=== PATIENT | male | born 1950 | race Caucasian/White ===

== ENCOUNTER 2022-05-17 07:41 | Outpatient (CLI) | payer MEDICARE, MEDICAID ==
[2022-05-17 08:35] LABS: BASOPHILS # (AUTO) 0.1 10^3/uL (0.0-0.1); BASOPHILS % (AUTO) 0.8 %; EOSINOPHILS # (AUTO) 0.5 10^3/uL (0.0-0.7); HCT - HEMATOCRIT 45.7 % (42.0-52.0); HGB - HEMOGLOBIN 14.8 g/dL (14.0-18.0); LYMPHOCYTES # (AUTO) 1.8 10^3/uL (1.5-3.5); LYMPHOCYTES % (AUTO) 23.5 %; MEAN CORPUSCULAR HGB CONC 32.4 g/dL (32.0-36.0); MEAN CORPUSCULAR VOLUME 98.7 fL (80.0-94.0); MEAN PLATELET VOLUME 9.5 fL (7.4-11.4); MONOCYTES # (AUTO) 0.7 10^3/uL (0.0-1.0); MONOCYTES % (AUTO) 8.6 %; NEUTROPHILS # (AUTO) 4.6 10^3/uL (1.5-6.6); NEUTROPHILS % (AUTO) 60.8 %; PLT - PLATELET COUNT 251 10^3/uL (130-450); RED BLOOD COUNT 4.63 10^6/uL (4.70-6.10); RED CELL DISTRIBUTION WIDTH 13.4 % (12.0-15.0); WHITE BLOOD COUNT 7.6 x10^3/uL (4.8-10.8)
[2022-05-17 08:56] LABS: ALBUMIN 4.1 g/dL (3.2-5.5); ALBUMIN/GLOBULIN RATIO 1.3 (1.0-2.2); ALKALINE PHOSPHATASE 46 IU/L (42-121); ALT ALANINE AMINOTRANSFERASE 18 IU/L (10-60); AST ASPARTATE AMINOTRANSFERASE 20 IU/L (10-42); BILIRUBIN,TOTAL 1.1 mg/dL (0.2-1.0); BUN - BLOOD UREA NITROGEN 19 mg/dL (6-20); CALCIUM 9.2 mg/dL (8.5-10.3); CARBON DIOXIDE - CO2 31 mmol/L (21-32); CHLORIDE 99 mmol/L (101-111); CHOL/HDL RATIO 3.1 (<5.0); CHOLESTEROL 254 mg/dL; CREATININE 0.8 mg/dL (0.6-1.2); GFR - MDRD 96 (>89); GLUCOSE 100 mg/dL (70-100); HDL CHOLESTEROL 83 mg/dL; LDL CHOLESTEROL,CALCULATED 161 mg/dL; LDL/HDL RATIO 1.9 (<3.6); POTASSIUM 4.2 mmol/L (3.5-5.0); SODIUM 136 mmol/L (135-145); TOTAL PROTEIN 7.3 g/dL (6.7-8.2); TRIGLYCERIDES 51 mg/dL; VLDL CHOLESTEROL 10 mg/dL
[2022-05-17 09:04] LABS: THYROID STIMULATING HORMONE 1.83 uIU/mL (0.34-5.60)
--- NOTE | 2022-05-17 12:10 | Ultrasound Report ---
PROCEDURE: Aorta Screening INDICATIONS: SMOKER TECHNIQUE: Real time scanning was performed of the aorta and iliac arteries, with image documentatio n. COMPARISON: None FINDINGS: Aorta: Proximal aortic diameter measures 2.5 x 2.4 cm. Mid-aorta measures 1.9 x 1.9 cm. Distal aor tic diameter is 1.5 x 1.5 cm. Minimal distal aortic atherosclerotic plaque. Iliac arteries: Right common iliac artery measures 1.0 x 1.0 cm. Left common iliac artery measures 1.0 x 1.0 cm. Proximal iliac atherosclerotic plaque noted. IMPRESSION: Atherosclerosis. No evidence for abdominal aortic or iliac artery aneurysm. Reviewed by: Tariq Smith MD on 05/17/2022 12:08 PM PST Approved by: Tariq Smith MD on 05/17/2022 12:08 PM PST Station ID: [id number]
--- NOTE | 2022-05-17 12:49 | CT Report ---
PROCEDURE: Low Dose Lung Cancer Screen INDICATIONS: SMOKER TECHNIQUE: Noncontrast low-dose axial images were acquired from the pulmonary apices to the posterior costophren ic angles. Multiplanar MIP reformats were then reconstructed. For radiation dose reduction, the follo wing was used: automated exposure control, adjustment of mA and/or kV according to patient size. COMPARISON: None. FINDINGS: Image quality: Excellent. Lungs and pleura: No mass or significant pulmonary nodules. No acute airspace opacity. Trace secreti ons in the left mainstem bronchus and trachea. No pleural effusion. No pneumothorax. Mediastinum: Heart size is normal. Moderate coronary artery calcifications most pronounced in the LA D. No pericardial effusion. No mediastinal adenopathy by size criteria. Thoracic aorta and central pulmonary arteries are normal in size. Mildly calcified plaque in the aorta. Small fat-containing Pola chdalek hernias. Esophagus is normal in caliber. No hiatal hernia. Bones and chest wall: No suspicious bony lesions. No vertebral body compression fractures. No axil alexandre or supraclavicular adenopathy by size criteria. The thyroid is normal in size and there are no incidental findings. Abdomen: Visualized upper abdomen solid organs and bowel loops appear normal in the absence of contr ast. IMPRESSION: 1. No mass or significant pulmonary nodules. Lung RADS 1s. Recommend follow-up lung cancer screening chest CT in 12 months. 2. Moderate coronary artery calcifications. Reviewed by: Tony Zapata MD on 05/17/2022 12:48 PM PST Approved by: Tony Zapata MD on 05/17/2022 12:48 PM PST Station ID: [id number]
== END 2022-05-17 07:42 | disposition home or self-care (01) ==
LOC: DI 07:41 → LAB 07:42
PROVIDERS: ATTEND Registered Nurse
DX: J44.9 Chronic obstructive pulmonary disease, unspecified (principal); R94.6 Abnormal results of thyroid function studies; F17.210 Nicotine dependence, cigarettes, uncomplicated; Z13.228 Encounter for screening for other metabolic disorders; Z13.220 Encounter for screening for lipoid disorders; Z12.5 Encounter for screening for malignant neoplasm of prostate; Z13.0 Encounter for screening for diseases of the blood and blood-forming organs and certain disorders involving the immune mechanism; Z12.2 Encounter for screening for malignant neoplasm of respiratory organs; Z13.6 Encounter for screening for cardiovascular disorders; I70.0 Atherosclerosis of aorta; I25.10 Atherosclerotic heart disease of native coronary artery without angina pectoris
CPT/HCPCS: 36415; 71271; 76706; 80053; 80061; 84443; 85025; G0103; 83721; 84153

== ENCOUNTER 2023-05-20 14:15 | Outpatient (CLI) | payer MEDICARE, MEDICAID ==
--- NOTE | 2023-05-20 16:11 | CT Report ---
PROCEDURE: Chest WO INDICATIONS: COPD TECHNIQUE: A CT scan of the chest was performed. Intravenous contrast media was not administered. Images were re corded and evaluated at appropriate window settings. Reformats: axial MIP of the chest, coronal and s agittal. For radiation dose reduction, the following was used: automated exposure control, adjustment of mA and/or kV according to patient size. COMPARISON: CT low dose lung cancer screen at 05/17/2022. FINDINGS: Image quality: Diagnostic. Lungs and pleura: No consolidation. No pleural effusions. No pneumothorax. No suspicious pulmonary n odules which require follow up. Mediastinum: Heart size is normal. No pericardial effusion. Moderate coronary artery calcifications. No large vessel abnormality. No mediastinal adenopathy by size criteria. Redemonstration of small fa t-containing Bochdalek hernia. Chest wall and lower neck: Thyroid is unremarkable. No axillary or supraclavicular adenopathy by size . Bones: No acute or suspicious osseous abnormality. Mild degenerative changes of the spine. Trace retr olisthesis of L1 on L2. Upper Abdomen: Unremarkable. IMPRESSION: No emphysematous changes. No suspicious pulmonary nodule. Moderate coronary artery calcifications. Recommend continued annual low-dose CT chest lung cancer screening in 12 months if patient meets elig ibility criteria. Reviewed by: Tamanna Pickens MD on 05/20/2023 4:10 PM [facility] Approved by: Tamanna Pickens MD on 05/20/2023 4:10 PM PST Station ID: [id number]
== END 2023-05-20 14:16 | disposition home or self-care (01) ==
LOC: DI 14:15
PROVIDERS: ATTEND Registered Nurse
DX: J44.9 Chronic obstructive pulmonary disease, unspecified (principal); F17.210 Nicotine dependence, cigarettes, uncomplicated; I25.10 Atherosclerotic heart disease of native coronary artery without angina pectoris

== ENCOUNTER 2023-05-27 11:26 | Outpatient (CLI) | payer MEDICARE, MEDICAID ==
[2023-05-27 14:10] LABS: BASOPHILS # (AUTO) 0.1 10^3/uL (0.0-0.1); BASOPHILS % (AUTO) 0.8 %; EOSINOPHILS # (AUTO) 0.3 10^3/uL (0.0-0.7); EOSINOPHILS % (AUTO) 3.2 %; HCT - HEMATOCRIT 44.9 % (42.0-52.0); HGB - HEMOGLOBIN 14.6 g/dL (14.0-18.0); LYMPHOCYTES # (AUTO) 2.2 10^3/uL (1.5-3.5); LYMPHOCYTES % (AUTO) 23.6 %; MEAN CORPUSCULAR HEMOGLOBIN 31.8 pg (27.0-31.0); MEAN CORPUSCULAR HGB CONC 32.5 g/dL (32.0-36.0); MEAN CORPUSCULAR VOLUME 97.8 fL (80.0-94.0); MEAN PLATELET VOLUME 10.2 fL (7.4-11.4); MONOCYTES # (AUTO) 0.7 10^3/uL (0.0-1.0); MONOCYTES % (AUTO) 7.9 %; NEUTROPHILS % (AUTO) 64.1 %; PLT - PLATELET COUNT 333 10^3/uL (130-450); RED BLOOD COUNT 4.59 10^6/uL (4.70-6.10); RED CELL DISTRIBUTION WIDTH 12.9 % (12.0-15.0); WHITE BLOOD COUNT 9.3 x10^3/uL (4.8-10.8)
[2023-05-27 14:32] LABS: ALBUMIN 4.3 g/dL (3.2-5.5); ALBUMIN/GLOBULIN RATIO 1.4 (1.0-2.2); ALKALINE PHOSPHATASE 53 IU/L (42-121); ALT ALANINE AMINOTRANSFERASE 15 IU/L (10-60); AST ASPARTATE AMINOTRANSFERASE 21 IU/L (10-42); BILIRUBIN,TOTAL 0.6 mg/dL (0.2-1.0); BUN - BLOOD UREA NITROGEN 15 mg/dL (6-20); CALCIUM 9.6 mg/dL (8.5-10.3); CARBON DIOXIDE - CO2 32 mmol/L (21-32); CHLORIDE 99 mmol/L (101-111); CHOL/HDL RATIO 3.1 (<5.0); CHOLESTEROL 243 mg/dL; CREATININE 0.7 mg/dL (0.6-1.3); GFR - MDRD 111 (>89); GLUCOSE 94 mg/dL (74-104); HDL CHOLESTEROL 78 mg/dL; LDL CHOLESTEROL,CALCULATED 152 mg/dL; LDL/HDL RATIO 1.9 (<3.6); POTASSIUM 3.9 mmol/L (3.5-4.5); SODIUM 137 mmol/L (135-145); TOTAL PROTEIN 7.4 g/dL (6.4-8.9); TRIGLYCERIDES 67 mg/dL (48-352); VLDL CHOLESTEROL 13 mg/dL
[2023-05-27 14:42] LABS: THYROID STIMULATING HORMONE 1.37 uIU/mL (0.34-5.60)
== END 2023-05-27 11:27 | disposition home or self-care (01) ==
LOC: LAB.S 11:26
PROVIDERS: ATTEND Registered Nurse
DX: Z13.228 Encounter for screening for other metabolic disorders (principal); Z12.5 Encounter for screening for malignant neoplasm of prostate; Z13.220 Encounter for screening for lipoid disorders; Z13.29 Encounter for screening for other suspected endocrine disorder; Z13.0 Encounter for screening for diseases of the blood and blood-forming organs and certain disorders involving the immune mechanism; F17.200 Nicotine dependence, unspecified, uncomplicated
CPT/HCPCS: 36415; 80053; 80061; 84443; 85025; G0103; 83721; 84153

== ENCOUNTER 2023-10-19 18:52 | Emergency (ER) | payer MEDICAID, MEDICARE, OTHER ==
[2023-10-19] MEDS: PROPARACAINE 0.5% OPHTH DROPS 15 ML RIGHTEYE STA (20:34)
--- NOTE | 2023-10-19 20:59 | ED Physician Documentation ---
PD HPI OPHTHO - Stated complaint Stated Complaint: R EYE PX - Chief complaint Chief Complaint: Heent - History obtained from History obtained from: Patient - Additional information Additional information: Patient is a 73-year-old male presenting for evaluation of irritation to his right eye string around noon time. Patient states he was taking some stuff to the dumping [place] and felt that something may have gotten into his eye. He is unsure of what it could have been but he reports he has had a foreign body sensation and tearing in his eye since then. He does not normally wear glasses or contacts but does need readers. A friend at the bedside did try to irrigate his eye but he states this did not help with his symptoms. Review of Systems Constitutional: denies: Fever Eyes: reports: Irritation. denies: Loss of vision PD PAST MEDICAL HISTORY - Past Medical History Past Medical History: No - Past Surgical History Past Surgical History: No - Present Medications Home Medications: Ambulatory Orders Medication Instructions Recorded Confirmed Polymyxin B/Trimeth Ophth Drop 1 drops RIGHTEYE Q3H 3 Days #1 each 10/19/23 [Polytrim Ophth Drops] - Allergies Allergies/Adverse Reactions: Allergies Allergy/AdvReac Type Severity Reaction Status Date / Time No Known Drug Allergies Allergy Verified 10/19/23 19:15 - Social History Does the pt smoke?: Yes Smoking Status: Current every day smoker Does the pt drink ETOH?: Yes ETOH Use: Wine Does the pt have substance abuse?: No PD ED PE NORMAL - General General: Alert and oriented X 3, No acute distress, Well developed/nourished - HEENT HEENT: Atraumatic, PERRL, EOMI, Moist mucous membranes, Pharynx benign - Neck Neck: Supple, no meningeal sign - Respiratory Respiratory: No respiratory distress - Derm Derm: Warm and dry - Neuro Neuro: Normal speech PD ED PE EXPANDED - Eyes Eyes: Visual acuity - see nn, PERRL, EOMI, Normal eyelids, No eyelid FB (everted), Injected conj/sclera (Mild to right eye), Normal corneas. No: Eyelid embedded FB, Exudate, Subconj hemorrhage, Corneal abrasion, Corneal ulcer, Fluorescein uptake, Anterior chambers clear, Hyphema Results - Vitals Vitals: Vital Signs - 24 hr 10/19/23 10/19/23 19:11 21:27 Temperature 36.9 C 36.9 C Heart Rate 69 62 Respiratory 18 16 Rate Blood Pressure 122/76 146/88 H O2 Saturation 98 97 Oxygen O2 Source Room air PD Medical Decision Making - ED course ED course: Patient is a 73-year-old male presenting for evaluation of foreign body sensation to the right eye while clearing out debris. Visual acuity is normal. No signs of globe injury. PERRL and EOMI. Eye was carefully inspected including under the eyelid which was everted with a Q-tip and no visible foreign body was identified. Given age and duration of the irritation I will place the patient on antibiotic drops prophylactically for a few days As he has been rubbing his eye. Patient does understand however strict return precautions especially if the foreign body sensation returns Or he develops any worsening symptoms. Departure - Departure Disposition: 01 Home, Self Care Clinical Impression: Irritation of right eye Condition: Stable Instructions: ED Eye Particle Conjunctiva FB Rslv Prescriptions: Polymyxin B/Trimeth Ophth Drop [Polytrim Ophth Drops] 1 drops RIGHTEYE Q3H 3 Days #1 each Comments: Your eye and eyelid were Examined this evening and we were unable to find a foreign body or a scratch or injury to the cornea or injury to the globe of the eye. I will place you on an antibiotic drop for the next 3 days In case there is a small scratch somewhere that could put you at risk for infection. If tomorrow you are still having feelings of a foreign body in your eye with watering and discomfort then please return to the ER for another evaluation. If you develop any worsening changes such as pain, abnormal vision please return sooner. Your prescription was sent to [facility] in [place]. Forms: PCP List Discharge Date/Time: 10/19/23 21:31
[2023-10-19] MEDS: POLYMYXIN B/TRIMETH OPHTH DROPS RIGHTEYE STA (21:25)
[2023-10-19 21:33] VITALS: BP 146/88; O2SAT 97
== END 2023-10-19 21:31 | disposition home or self-care (01) ==
LOC: ED 18:52
DX: H57.89 Other specified disorders of eye and adnexa (principal); F17.200 Nicotine dependence, unspecified, uncomplicated
CPT/HCPCS: 99283; 99284; A9270; J3490